=== PATIENT | male | born 1975 | race Caucasian/White ===

== ENCOUNTER 2020-02-03 09:22 | Emergency (ER) | payer BC ==
[~2020-02-03] VITALS: Ht 182.9 cm; Wt 124.7 kg
[2020-02-03 09:29] VITALS: BP 156/69
--- NOTE | 2020-02-03 09:38 | NUR ---
44/M BIB SELF C/O LEFT LEG, LEFT ARM & LEFT TESTICLE PAIN 10/29 X 1 WEEK. DENIES TRAUMA. DENIES N/V/D; SKIN IS PINK/WARM/DRY; AAOX4 WITH EVEN AND STEADY GAIT; LUNGS CLEAR BL; HR EVEN AND REGULAR; PT DENIES ANY FEVER, CP, SOB, OR COUGH AT THIS TIME; PATIENT POSITIONED FOR COMFORT; HOB ELEVATED; BEDRAILS UP X1; BED DOWN. ER MD MADE AWARE OF PT STATUS.
[2020-02-03] MEDS ORDERED: KETOROLAC 60 MG/2 ML VIAL IM ONE (09:40)
[2020-02-03] MEDS ORDERED: MORPHINE SULFATE 4 MG/ML SYR IM ONE (09:50)
--- NOTE | 2020-02-03 10:19 | NUR ---
Note [email or web address] in EDM - 02/03/20 at 1025 by [facility] Patient discharged with v/s stable. Written and verbal after care instructions given and explained. Patient alert, oriented and verbalized understanding of instructions. Ambulatory with steady gait. All questions addressed prior to discharge. ID band removed. Patient advised to follow up with PMD. Rx of PRILOSEC given. Patient educated on indication of medication including possible reaction and side effects. Opportunity to ask questions provided and answered.
[2020-02-03 10:20] VITALS: BP 153/89
--- NOTE | 2020-02-03 10:20 | NUR ---
Note [email or web address] in EDM - 02/03/20 at 1023 by [facility] Patient discharged with v/s stable. Written and verbal after care instructions given and explained. Patient alert, oriented and verbalized understanding of instructions. Ambulatory with steady gait. All questions addressed prior to discharge. ID band removed. Patient advised to follow up with PMD. Rx of MOTRIN & NORCO given. Patient educated on indication of medication including possible reaction and side effects. Opportunity to ask questions provided and answered.
== END 2020-02-03 10:20 | disposition home or self-care (01) ==
LOC: MED 09:22
DX: M79.18 Myalgia, other site (principal); Z90.49 Acquired absence of other specified parts of digestive tract
CPT/HCPCS: 96372; 99283; J2270

== ENCOUNTER 2020-11-15 23:00 | Emergency (ER) | payer BC ==
[~2020-11-15] VITALS: Ht 182.9 cm; Wt 124.7 kg
[2020-11-15 23:05] VITALS: BP 141/71
--- NOTE | 2020-11-15 23:07 | NUR ---
TO LOBBY A/W BED AMBULATORY
[2020-11-16] MEDS ORDERED: LIDOCAINE MPF 1% 10 MG/ML VIAL INJ ONE ×2 (00:25→00:45)
[2020-11-16] MEDS ORDERED: BACITRACIN OINT 500 UNITS/GM PKT TP ONE ×2 (00:45)
[2020-11-16] MEDS ORDERED: CEPH500C16 PO (01:04)
[2020-11-16] MEDS ORDERED: NAPR-54 PO (01:05)
[2020-11-16 01:08] VITALS: BP 138/70
== END 2020-11-16 01:08 | disposition home or self-care (01) ==
LOC: MED 23:00
DX: L03.011 Cellulitis of right finger (principal); Z79.1 Long term (current) use of non-steroidal anti-inflammatories (NSAID); Z79.2 Long term (current) use of antibiotics
CPT/HCPCS: 11730; 99284; J2001

== ENCOUNTER 2021-01-26 10:30 | Emergency (ER) | payer OTHER, BC ==
[~2021-01-26] VITALS: Ht 182.9 cm; Wt 139.7 kg
[~2021-01-26 10:30] MED LIST: CEPH500C16 PO; NAPR-54 PO
[2021-01-26 10:45] VITALS: BP 155/104
--- NOTE | 2021-01-26 11:00 | NUR ---
PT TAKEN TO XRAY VIA W/C
--- NOTE | 2021-01-26 11:10 | NUR ---
PT BACK FROM XRAY VIA W/C
--- NOTE | 2021-01-26 11:22 | NUR ---
ERMGui YAN AT BEDSIDE FOR EVAL
--- NOTE | 2021-01-26 11:40 | NUR ---
45/M BIB SELF WITH C/O LOWER BACK PAIN. PATIENT STATES HE HAS BEEN HAVING INTERMITTENT LOWER BACK PAIN X1 YEAR. STATING ON WEDNESDAY HE WAS AT WORK AND "TOOK A MISSTEP" STATING HE FELT THE PAIN WORSEN INSTANTLY. PATIENT REPORTS HE IS REQUIRED TO WEAR A "HEAVY UTILITY BELT" FOR WORK AND STATES HE FEELS IT IS AGGRAVATING THE PAIN. PATIENT REPORTS TAKING MOTRIN YESTERDAY WITH NO RELILEF. DENIES CP, SOB, N/V/D, FEVER OR CHILLS. PATIENT IS ABLE TO AMBULATE WITHOUT ASSISTANCE BUT STATES PAIN WORSENS WITH WALKING.
[2021-01-26] MEDS ORDERED: LIDOCAINE 5% 1 EA PATCH TP STA (11:41)
[2021-01-26] MEDS ORDERED: KETOROLAC 30 MG/ML VIAL IM ONE (11:45)
[2021-01-26] MEDS ORDERED: CYCLOBENZAPRINE 10 MG TAB PO ONE (11:45)
[2021-01-26] MEDS ORDERED: IBUP-2213 PO (11:52)
[2021-01-26] MEDS ORDERED: LID5T TP (11:52)
[2021-01-26] MEDS ORDERED: HYDR-5080 PO (11:52)
--- NOTE | 2021-01-26 12:21 | NUR ---
PAIN REASSESSED. PATIENT STATES SOME RELIEF.
--- NOTE | 2021-01-26 12:27 | NUR ---
Patient discharged with v/s stable. Written and verbal after care ABOUT LOW BACK SPRAIN AND SPRAIN REHAB instructions given and explained. Patient alert, oriented and verbalized understanding of instructions. Ambulatory with steady gait. All questions addressed prior to discharge. ID band removed. Patient advised to follow up with PMD. Rx of NORCO 7.5-325, IBUPROFEN, LIDOCAINE HYD given. Opportunity to ask questions provided and answered.
== END 2021-01-26 12:27 | disposition home or self-care (01) ==
LOC: MED 10:30
DX: M54.50 Low back pain, unspecified (principal); Z79.899 Other long term (current) drug therapy
CPT/HCPCS: 72100; 96372; 99283; J1885

== ENCOUNTER 2023-02-01 04:55 | Emergency (ER) | payer BC ==
[~2023-02-01] VITALS: Ht 182.9 cm; Wt 139.7 kg
[~2023-02-01 04:55] MED LIST changes: +HYDR-5080 PO; +IBUP-2213 PO; +LID5T TP
[2023-02-01 05:05] VITALS: BP 167/97; PULSE 84; RESP 18; TEMP 97.9; O2SAT 98
[2023-02-01] MEDS ORDERED: ACETAMINOPHEN EXTRA STRENGTH 500 MG TAB PO ONE (05:50)
[2023-02-01] MEDS ORDERED: DICYCLOMINE HCL LIQUID 20 MG, ALUMINUM HYD/MAG/SIMETHICONE 30 ML, LIDOCAINE VISCOUS 2% ... PO ONE ×3 (06:10)
[2023-02-01] MEDS ORDERED: ALUMINUM HYD/MAG/SIMETHICONE 30 ML UDC ONE (06:12)
[2023-02-01] MEDS ORDERED: DICYCLOMINE HCL LIQUID 10 MG/5 ML UDC ONE (06:13)
[2023-02-01] MEDS ORDERED: NACL 0.9% 500 ML IV ONE (06:35)
[2023-02-01 06:50] LABS: BASOPHILS # (AUTO) 0.1 K/uL (0.00-0.22); EOSINOPHILS # (AUTO) 0.2 K/uL (0-0.4); EOSINOPHILS % (AUTO) 3.3 % (0.0-4.0); HEMATOCRIT 42.8 % (36-52); HEMOGLOBIN 14.7 g/dL (12.0-18.0); LYMPHOCYTES # (AUTO) 2.4 K/uL (2.0-11.5); LYMPHOCYTES % (AUTO) 34.2 % (20.5-51.1); MEAN CORPUSCULAR HEMOGLOBIN 27 pg (27-31); MEAN CORPUSCULAR HGB CONC 34 g/dL (33-37); MEAN CORPUSCULAR VOLUME 80.1 fL (80-94); MONOCYTES # (AUTO) 0.6 K/uL (0.8-1.0); MONOCYTES % (AUTO) 8.3 % (1.7-9.3); NEUTROPHILS # (AUTO) 3.7 K/uL (1.8-7.7); NEUTROPHILS % (AUTO) 53.2 % (42.2-75.2); PLATELET COUNT (AUTO) 303 K/uL (140-450); RED BLOOD CELL COUNT(AUTO) 5.35 MIL/uL (4.20-6.10); RED CELL DISTRIBUTION WIDTH 14.2 % (11.6-13.7); WHITE BLOOD COUNT (AUTO) 6.9 K/uL (4.8-10.8)
[2023-02-01 06:58] LABS: ANION GAP 11.9 (8-16); CALCIUM 9.6 mg/dL (8.5-10.1); CARBON DIOXIDE 27.3 mmol/L (21-32); POTASSIUM 4.2 mmol/L (3.5-5.1)
== END 2023-02-01 08:56 | disposition home or self-care (01) ==
LOC: MED 04:55
DX: R20.2 Paresthesia of skin (principal); R51.9 Headache, unspecified; K21.9 Gastro-esophageal reflux disease without esophagitis; I10 Essential (primary) hypertension; Z79.899 Other long term (current) drug therapy
CPT/HCPCS: 36415; 70450; 71045; 71275; 80048; 83690; 84484; 85025; 93005; 96360; 99285; J7030; Q0092; Q9967

== ENCOUNTER 2023-03-05 06:00 | Emergency (ER) | payer BC ==
[~2023-03-05] VITALS: Ht 182.9 cm; Wt 136.1 kg
[2023-03-05 06:26] VITALS: BP 139/92; PULSE 60; RESP 16; TEMP 97.1; O2SAT 100
[2023-03-05] MEDS ORDERED: KETOROLAC 30 MG/ML VIAL IM ONE (07:05)
[2023-03-05 07:35] LABS: ANION GAP 11.2 (8-16); CARBON DIOXIDE 29.8 mmol/L (21-32); CREATININE 0.9 mg/dL (0.6-1.3)
[2023-03-05] MEDS ORDERED: IBUP-2213 PO (08:37)
[2023-03-05 09:13] VITALS: BP 157/80; PULSE 61; RESP 18; TEMP 97.6; O2SAT 99
== END 2023-03-05 09:13 | disposition home or self-care (01) ==
LOC: MED 06:00
DX: I10 Essential (primary) hypertension (principal); R51.9 Headache, unspecified; Z79.899 Other long term (current) drug therapy
CPT/HCPCS: 36415; 80048; 93005; 96372; 99284; J1885